=== PATIENT | male | born 1970 | race Caucasian/White ===

== ENCOUNTER 2017-03-20 15:14 | Outpatient (CLI) | payer BC ==
--- NOTE | 2017-03-23 11:02 | Diagnostic Imaging Report ---
Indication: Left lateral foot pain and swelling Technique: Grayscale and duplex images of the left lateral foot Comparison: none Findings: In the left lateral foot, immediately deep to the skin surface, there is a fluctuant 3.4 x 1.4 cm collection that contains low level internal echoes, is avascular. Impression: Fluctuant 3 x 4 x 1.4 cm left lateral avascular fluid collection. Possibilities include abscess, complex seroma, less likely hematoma. Correlate with clinical findings Dr. Casey previously notified
== END 2017-03-20 17:14 | disposition home or self-care (01) ==
LOC: ULS 15:14
DX: M79.605 Pain in left leg (principal)
CPT/HCPCS: 76881

== ENCOUNTER 2017-11-08 22:11 | Emergency (ER) | payer BC ==
[~2017-11-08] VITALS: Ht 193 cm; Wt 129.3 kg
[2017-11-08 22:13] VITALS: BP 138/100
[2017-11-08] MEDS ORDERED: TRAZODONE HCL150 MG ORAL (22:21)
[2017-11-08] MEDS ORDERED: LOSARTAN POTASS25 MG ORAL (22:21)
[2017-11-08] MEDS ORDERED: TRAMADOL HCL50 MG ORAL (22:21)
[2017-11-08] MEDS ORDERED: PROZAC10 MG ORAL (22:21)
[2017-11-08] MEDS ORDERED: AMBIEN10 MG ORAL (22:21)
[2017-11-08] MEDS ORDERED: ACIPHEX20 MG ORAL (22:21)
--- NOTE | 2017-11-09 01:08 | Emergency Room Report ---
History of Present Illness General Chief Complaint: Lower Extremity Injury Source: Patient Present Illness HPI 47-year-old male presents ED complaining of left ankle pain and left foot pain. States that he tripped this afternoon. Patient states he was concerned that he's had prior surgery on this foot and infection of this foot. Pain was initially a 10 out of 10. Patient took OxyContin 3 at home with pain improved. Now pain is a 1 out of 10, throbbing, nonradiating. Patient presents in walking boot. Denies any other injuries. No other aggravating relieving factors. Denies any other associated symptoms Allergies: Coded Allergies: ACETAMINOPHEN (Verified Allergy, Unknown, 11/08/17) Patient History Past Medical History: none Past Surgical History: none Pertinent Family History: none Social History: Denies: smoking, alcohol use, drug use Immunizations: UTD Reviewed Nursing Documentation: PMH: Agreed; PSxH: Agreed Review of Systems All Other Systems: negative except mentioned in HPI Physical Exam Vital Signs Date Time Temp Pulse Resp B/P (MAP) Pulse Ox O2 Delivery O2 Flow Rate FiO2 11/08/17 22:13 98.2 105 14 138/100 95 98.2 Sp02 EP Interpretation: reviewed, normal General Appearance: no apparent distress, alert, GCS 15, non-toxic Head: normocephalic Eyes: bilateral eye normal inspection, bilateral eye PERRL ENT: normal ENT inspection Neck: normal inspection Respiratory: normal inspection Cardiovascular #1: normal inspection Gastrointestinal: normal inspection Rectal: deferred Genitourinary: no CVA tenderness Musculoskeletal: back normal, gait/station normal, normal range of motion, swelling - L ankle Neurologic: alert, oriented x3, responsive, motor strength/tone normal, sensory intact, speech normal Psychiatric: judgement/insight normal, memory normal, mood/affect normal, no suicidal/homicidal ideation Skin: normal color, no rash, warm/dry, well hydrated Lymphatic: normal inspection Medical Decision Making Diagnostic Impression: Primary Impression: Ankle sprain Qualified Codes: S93.402A - Sprain of unspecified ligament of left ankle, initial encounter ER Course Hospital Course 47-year-old M presents to ED complaining of L foot/ankle pain s/p trip and fall Differential diagnoses include: Fracture, dislocation, sprain, contusion Clinical course Patient placed on stretcher. After initial history and physical, I ordered Xrays of L foot/ankle Xrays prelim read shows no acute fracture/dislocation. Discussed findings with the patient. Reassurance given. Patient was concerned because of prior injury to foot. Patient already has walking boot. Has pain medications at home. Patient safely discharged with close outpatient follow-up Diagnosis - ankle sprain Stable and discharged to home. apply ice, keep elevated. weight bear as tolerated. Followup with PMD. Return to ED if symptoms recur or worsen Other X-Ray Diagnostic Results Other X-Ray Diagnostic Results #1: X-Ray ordered: L foot # of Views/Limited Vs Complete: 3 View Indication: Pain EP Interpretation: Yes Interpretation: no dislocation, no fractures Impression: No acute disease Electronically Signed by: Electronically signed by Alex Mas MD Other X-Ray Diagnostic Results #2: X-Ray ordered: L ankle # of Views/Limited Vs Complete: 3 View Indication: Pain EP Interpretation: Yes Interpretation: no dislocation, no soft tissue swelling, no fractures Impression: No acute disease Electronically Signed by: Electronically signed by Alex Mas MD Last Vital Signs Date Time Temp Pulse Resp B/P (MAP) Pulse Ox O2 Delivery O2 Flow Rate FiO2 11/08/17 23:22 98.2 14 138/100 95 98.2 11/08/17 22:13 105 Status: improved Disposition: HOME, SELF-CARE Condition: Stable Patient Instructions: Ankle Sprain Alex Msa MD Nov 09, 2017 01:08
--- NOTE | 2017-11-09 09:45 | Diagnostic Imaging Report ---
Indication: Pain Technique: XRAY Foot Complete L Comparison: 11/19/2011 Findings: There is a remote/healed fracture deformity of the shaft of the fifth metatarsal. No acute fracture identified. Alignment and joint spaces are preserved. No radiopaque foreign body seen. Impression: No acute fracture or dislocation.
--- NOTE | 2017-11-09 09:46 | Diagnostic Imaging Report ---
Indication: Pain Technique: XRAY Ankle Compl Min 3v L Comparison: None Findings: No acute fracture. Ankle mortise intact on these nonstress views. Imaged hindfoot grossly unremarkable. No appreciable ankle joint effusion. No radiopaque foreign body seen. Impression: No acute bony or articular abnormality.
== END 2017-11-08 23:54 | disposition home or self-care (01) ==
LOC: EMR 22:58
DX: S93.402A Sprain of unspecified ligament of left ankle, initial encounter (principal); W01.0XXA Fall on same level from slipping, tripping and stumbling without subsequent striking against object, initial encounter; Y93.9 Activity, unspecified; Y92.9 Unspecified place or not applicable; Z88.6 Allergy status to analgesic agent
CPT/HCPCS: 99283

== ENCOUNTER 2018-01-25 13:10 | Outpatient (CLI) | payer BC ==
[~2018-01-25 13:10] MED LIST: ACIPHEX20 MG ORAL; AMBIEN10 MG ORAL; LOSARTAN POTASS25 MG ORAL; PROZAC10 MG ORAL; TRAMADOL HCL50 MG ORAL; TRAZODONE HCL150 MG ORAL
--- NOTE | 2018-01-25 15:09 | Diagnostic Imaging Report ---
Indication: Lateral ankle swelling Technique: Polk scale and color flow imaging of the left ankle was performed. Findings: Clinical area of concern is the lateral part of the ankle. Soft tissue swelling is noted with an area of abnormal hypoechogenicity which may be phlegmon, abscess or possibly a hematoma. At this institution, the best modality for evaluating complications of cellulitis and infection such as identification of an abscess would be MRI with or without gadolinium, preferably with gadolinium. IMPRESSION: Soft tissue swelling with suggestion of a underlying phlegmon or abscess. Suggest MRI for further evaluation.
== END 2018-01-25 15:10 | disposition home or self-care (01) ==
LOC: VAS 13:10
DX: M25.472 Effusion, left ankle (principal)
CPT/HCPCS: 93970

== ENCOUNTER 2018-01-29 12:16 | Outpatient (RCR) | payer BC | END 2018-02-07 | disposition still patient (30) | LOC: WCC 12:16 | DX: L02.612 Cutaneous abscess of left foot (principal); M86.572 Other chronic hematogenous osteomyelitis, left ankle and foot; B20 Human immunodeficiency virus [HIV] disease; F41.9 Anxiety disorder, unspecified; Z90.89 Acquired absence of other organs ==

== ENCOUNTER 2018-11-23 11:33 | Emergency (ER) | payer BC ==
[~2018-11-23] VITALS: Ht 193 cm; Wt 124.7 kg
--- NOTE | 2018-11-23 11:50 | NUR ---
ED Nurse Note: patient walked into ED to remove the cast on his left leg. patient reports his doctor told him to come here. patient is alert awake x4 ambulatory, breathing unlabored and even.
--- NOTE | 2018-11-23 13:00 | Emergency Room Report ---
History of Present Illness General Chief Complaint: Lower Extremity Injury Source: Patient Present Illness HPI 48-year-old male with no significant medical history here requesting cast removal on his left lower extremity. Patient reports that he had a fracture in left foot 2 years ago however has been wearing splints and casts on and off. Patient requested his business management specialist to apply cast for mineralized mobility 2 weeks ago. However was unable to make a follow-up visit with his business management specialist. Denies any pain or pressure on any of the cast. Denies any tingling or numbness and has full range of motion of his toes. Patient has an ankle boot with him and reports that he is going to wear that after instead of us applying any immobilizer. Patient is able to apply pressure to the affected area. Denies chest pain, shortness of breath, hypertension, no other associated symptoms. Denies pain Allergies: Coded Allergies: ACETAMINOPHEN (Verified Allergy, Unknown, 11/08/17) Patient History Past Medical History: see triage record Past Surgical History: unable to obtain Pertinent Family History: none Immunizations: UTD Reviewed Nursing Documentation: PMH: Agreed; PSxH: Agreed Review of Systems All Other Systems: negative except mentioned in HPI Physical Exam Vital Signs Date Time Temp Pulse Resp B/P (MAP) Pulse Ox O2 Delivery O2 Flow Rate FiO2 11/23/18 11:40 97.9 99 19 120/69 (86) 97 Room Air Sp02 EP Interpretation: reviewed, normal General Appearance: no apparent distress, alert, GCS 15, non-toxic Head: normocephalic, atraumatic Eyes: bilateral eye normal inspection, bilateral eye PERRL ENT: hearing grossly normal, normal pharynx, no angioedema, normal voice Neck: full range of motion, supple/symm/no masses Respiratory: chest non-tender, lungs clear, normal breath sounds, speaking full sentences Cardiovascular #1: regular rate, rhythm, no edema Cardiovascular #2: 2+ dorsalis pedis (R), 2+ dorsalis pedis (L) Gastrointestinal: normal bowel sounds, non tender, soft, non-distended, no guarding, no rebound Musculoskeletal: normal inspection, back normal, digits/nails normal, gait/ station normal, normal range of motion, other - No signs of compartment syndrome noted patient has full range of motion of toes in the cast, without any neuro or vascular deficits after the removal of cast. Procedures Additional Procedure Procedure Narrative Cast removal left lower extremity Medical Decision Making PA Attestation All diagnoses and treatment plans were reviewed and discussed with my supervising physician Dr. Lam Diagnostic Impression: Primary Impression: Cast removal ER Course 48-year-old male with no significant medical history here requesting cast removal on his left lower extremity. Patient reports that he had a fracture in left foot 2 years ago however has been wearing splints and casts on and off. Patient requested his business management specialist to apply cast for mineralized mobility 2 weeks ago. However was unable to make a follow-up visit with his business management specialist. Denies any pain or pressure on any of the cast. Denies any tingling or numbness and has full range of motion of his toes. Patient has an ankle boot with him and reports that he is going to wear that after instead of us applying any immobilizer. Patient is able to apply pressure to the affected area. Denies chest pain, shortness of breath, hypertension, no other associated symptoms. Denies pain Ddx considered but are not limited to: ankle sprain, ankle strain, ankle fracture, ankle contusion , compartment syndrome, complicated cast removal, uncomplicated cast removal Vital signs: are WNL, pt. is afebrile H&PE are most consistent with: Uncomplicated cast removal ORDERS: None ED INTERVENTIONS: Cast removal and application of ankle boot DISCHARGE: At this time pt. is stable for d/c to home. Will provide printed patient care instructions, and any necessary prescriptions. Care plan and follow up instructions have been discussed with the patient prior to discharge. I advised the patient to follow-up with his business management specialist return to emergency room if bluish discoloration of the left lower extremity, or tingling. No imaging is needed as patient fracture goes back to 2 years ago. Last Vital Signs Date Time Temp Pulse Resp B/P (MAP) Pulse Ox O2 Delivery O2 Flow Rate FiO2 11/23/18 11:40 97.9 99 19 120/69 (86) 97 Room Air Disposition: HOME, SELF-CARE Condition: Stable Referrals: NON PHYSICIAN (PCP) Patient Instructions: Cast or Splint Care Additional Instructions: Follow-up with your business management specialist where your boot. Elevate affected area. Hazel Stanford Nov 23, 2018 13:00
[2018-11-23 13:03] VITALS: BP 120/69
--- NOTE | 2018-11-23 13:03 | NUR ---
ER DISCHARGE NOTE: Patient is cleared to be discharged per ROGE ROSA, pt is aox4, on room air, with stable vital signs. pt was given dc and prescription instructions, pt was able to verbalize understanding, pt id band removed without complications. pt is able to ambulate with steady gait. pt took all belongings.
== END 2018-11-23 13:03 | disposition home or self-care (01) ==
LOC: EMR 12:18
DX: Z47.2 Encounter for removal of internal fixation device (principal); Z88.6 Allergy status to analgesic agent
CPT/HCPCS: 99282